=== PATIENT | female | born 1970 | race Two or more races ===

== ENCOUNTER 2018-05-24 17:37 | Emergency (ER) | payer BC, MEDICAID ==
[~2018-05-24] VITALS: Ht 149.9 cm; Wt 64.4 kg
[2018-05-24 18:59] LABS: ANION GAP 7 mmol/L (5-15); CALCIUM 8.5 mg/dL (8.5-10.1); CHLORIDE 109 mmol/L (98-107); CREATININE 0.59 mg/dL (0.55-1.02)
[2018-05-24 19:18] VITALS: BP 113/68
== END 2018-05-24 19:20 | disposition home or self-care (01) ==
LOC: ED 18:45
DX: R51 Headache (principal); R20.2 Paresthesia of skin; J44.9 Chronic obstructive pulmonary disease, unspecified; E03.9 Hypothyroidism, unspecified; F17.200 Nicotine dependence, unspecified, uncomplicated
CPT/HCPCS: 36415; 80048; 83735; 99284